=== PATIENT | female | born 1990 | race Caucasian/White ===

== ENCOUNTER 2016-12-24 20:31 | Emergency (ER) | payer MEDICAID ==
[~2016-12-24] VITALS: Ht 154.9 cm; Wt 60.5 kg
[~2016-12-24 20:31] MED LIST: PREN1TAB49
[2016-12-24 20:42] VITALS: Ht 154.9 cm; Wt 60.5 kg
[2016-12-24] MEDS ORDERED: ONDANSETRON 4 MG INJ IV STA (21:34)
[2016-12-24] MEDS ORDERED: morphine 4 MG/ML VIAL IV STA (21:34)
[2016-12-24 22:27] LABS: BASOPHILS % 0.4 % (0.0-2.0); EOSINOPHILS % 0.7 % (0.0-7.0); HEMATOCRIT 32.7 % (37.0-47.0); HEMOGLOBIN 10.9 g/dl (12.0-16.0); LYMPHOCYTES # 1.6 10^3/ul (0.8-2.9); LYMPHOCYTES % 28.7 % (15.0-51.0); MEAN CORPUSCULAR HEMOGLOBIN 26.4 pg (29.0-33.0); MEAN CORPUSCULAR HGB CONC 33.4 g/dl (32.0-37.0); MEAN CORPUSCULAR VOLUME 79.2 fl (82.0-101.0); MEAN PLATELET VOLUME 8.9 fl (7.4-10.4); MONOCYTE # 0.5 10^3/ul (0.3-0.9); MONOCYTES % 9.4 % (0.0-11.0); NEUTROPHIL # 3.4 10^3/ul (1.6-7.5); NEUTROPHILS % 60.8 % (39.0-77.0); PLATELET COUNT 130 10^3/UL (140-440); RED BLOOD COUNT 4.13 10^6/ul (4.20-5.40); UNCORRECTED WBC 5.5 10^3/ul (4.8-10.8); WHITE BLOOD COUNT 5.5 10^3/ul (4.8-10.8)
[2016-12-24 22:29] LABS: CONDITION 1; LH ANALYZER COMMENTS 1
[2016-12-24 22:32] LABS: POTASSIUM 3.6 mmol/L (3.5-5.1)
[2016-12-24 22:34] LABS: ALBUMIN/GLOBULIN RATIO 1.25; BILIRUBIN,INDIRECT 0.6 mg/dl (0-1.1); BILIRUBIN,TOTAL 0.6 mg/dl (0.2-1.3); CREATININE 0.5 mg/dl (0.44-1.00); TOTAL PROTEIN 7.2 g/dl (6.1-8.1)
[2016-12-24 22:35] LABS: CALCIUM 8.9 mg/dl (8.4-10.2)
[2016-12-24 23:12] LABS: URINE BLOOD (Dip) POC Negative (NEGATIVE)
[2016-12-24 23:27] LABS: ADD UMIC YES; URINE BILIRUBIN (Dip) NEGATIVE (NEGATIVE); URINE BLOOD (Dip) NEGATIVE (NEGATIVE); URINE GLUCOSE (Dip) NEGATIVE (NEGATIVE); URINE KETONES (Dip) NEGATIVE (NEGATIVE); URINE LEUKOCYTE ESTERASE (Dip) 1+ (NEGATIVE); URINE NITRITE (Dip) NEGATIVE (NEGATIVE); URINE TOTAL PROTEIN (Dip) TRACE (NEGATIVE); URINE UROBILINOGEN (Dip) 1.0 E.U./dL (0.1-1.0)
[2016-12-25 00:02] LABS: URINE COLOR YELLOW (YELLOW)
[2016-12-25 00:04] LABS: MUCUS,URINE MODERATE; URINE RBCS 0-2 /HPF (0)
[2016-12-25 00:05] LABS: SQUAMOUS EPITHELIAL CELL,UR MODERATE
--- NOTE | 2016-12-25 00:14 | RADRPT ---
PROCEDURE: CT Abdomen and Pelvis without contrast. CLINICAL INDICATION: Left lower quadrant abdominal pain. TECHNIQUE: CT scan of the abdomen without contrast was performed on a multi-slice CT scanner. Cor onal and sagittal reformatted images were obtained from the axial source images. The images were rev iewed on a high-resolution PACS workstation. RADIATION DOSE: CTDIvol: 7.1 mGyDLP: 346.0 mGy-cm COMPARISON: None. FINDINGS: Limited visualization of the inferior thorax is unremarkable. The liver is normal in size and densi ty without focal mass or intrahepatic biliary dilatation. The spleen, adrenal glands, gallbladder, extrahepatic common bile duct and pancreas are normal in appearance. The kidneys are normal in appe arance. There is a 2 mm stone in the lower pole right kidney. There is no periaortic, iliac or ingu inal lymphadenopathy. The aorta is normal in appearance. The colon is normal in appearance without evidence of asymmetric wall thickening, mass or dilatation . The small bowel is unremarkable. There is no mesenteric lymphadenopathy. The appendix is visual ized and normal in appearance (axial series image [id number]). The uterus adnexal structures unremarka ble. No definite ovarian cysts are seen. The bladder is normal in appearance. The lower thoracic and lumbar spines are unremarkable. No osteolytic or osteoblastic lesion is detected. The soft tiss ues are normal in appearance. IMPRESSION: 1. 2 mm stone in the lower pole of the right kidney without evidence of hydronephrosis. No ureteral stones are seen. 2. No mass, lymphadenopathy, or focal acute inflammatory process is identified. RPTAT: HGAS .Gabe Young MD, MD Date Time Electronically viewed and signed by .Gabe Young MD, MD on 12/25/2016 00:13 .S/
[2016-12-25] MEDS ORDERED: KETOROLAC 30 MG INJ IV STA (01:06)
--- NOTE | 2016-12-25 03:24 | RADRPT ---
PROCEDURE: Pelvic ultrasound. CLINICAL INDICATION: Pelvic pain. TECHNIQUE: Multiple sonographic images of the pelvis were obtained utilizing a transabdominal and endovaginal technique. The images were reviewed on a PACS workstation. COMPARISON: None. FINDINGS: The uterus is retroverted the and measures 8.4 x 3.3 x 6.3 cm. No abnormal uterine mass is identifie d. The endometrial echo complex is homogeneous and measures 11.6 mm. There is no evidence for free fluid. The right ovary has a normal echotexture and measures 4.9 x 3. 4 x 4.7 cm. The left ovary has a normal echotexture and measures 2.6 x 1.9 x 2.4 cm. There is norm al flow to both ovaries. There is a hypoechoic cyst within the right ovary measuring 2.1 x 2.6 x 2. 1 cm. No adnexal masses are identified. IMPRESSION: Right ovarian 2.6 cm cyst. Retroverted uterus. .Hoang Angulo MD, Date Time Electronically viewed and signed by .Hoang Angulo MD, MD on 12/25/2016 03:24 .T/
[2016-12-25] MEDS ORDERED: HYDR-906 PO (03:33)
[2016-12-25] MEDS ORDERED: IBUP-1542 PO (03:34)
[2016-12-25] MEDS ORDERED: TAMS-14 PO (03:34)
--- NOTE | 2016-12-25 03:52 | ERD ---
ER Documentation Chief Complaint Date/Time DATE: 12/25/16 TIME: 03:39 Chief Complaint left abd pain x 1 month, worse today HPI Patient is a 26-year-old female who presents to the emergency department with left-sided abdominal pain x 1 month. Patient states that her pain has become severely worse today. Patient states her current pain as a 10 out of 10 and is constant in nature. Patient describes the pain to be sharp. The pain is localized to the left lower quadrant and radiates to her left flank region. Patient denies pain with urination or hematuria. Patient reports chills however she denies fevers. Patient reports nausea but denies any vomiting. Patient denies any vaginal bleeding or vaginal discharge. Last BM was this morning, no diarrhea. Last Menstrual period 12/08/16. No sick contacts. No recent travel. No antibiotic use. ROS All systems reviewed and are negative except as per history of present illness. Medications Home Meds Active Scripts Tamsulosin Hcl* (Flomax*) 0.4 Mg Cap.er.24h, 0.4 MG PO QPM, #30 CAP Prov:RIGOBERTO SALEEM-C 12/25/16 Ibuprofen* (Motrin*) 600 Mg Tab, 600 MG PO Q6, #15 TAB Prov:RIGOBERTO SALEEM-C 12/25/16 Hydrocodone/Acetaminophen ([place] 5-325 Tablet) 1 Each Tablet, 1 TAB PO Q6H Y for PAIN, #10 TAB Prov:RIGOBERTO SALEEM-C 12/25/16 Reported Medications Vits W-Ca,Fe,Fa(<1MG) () 1 Tab Tablet 10/03/10 Allergies Allergies: Coded Allergies: No Known Allergy (Verified , 12/24/16) PMhx/Soc Medical and Surgical Hx: pt denies Medical Hx, pt denies Surgical Hx History of Surgery: Yes (C section) Anesthesia Reaction: No Hx Neurological Disorder: No Hx Respiratory Disorders: No Hx Cardiac Disorders: No Hx Psychiatric Problems: No Hx Miscellaneous Medical Probl: No Hx Alcohol Use: No Hx Substance Use: No Hx Tobacco Use: No Smoking Status: Never smoker FmHx Family History: No diabetes Physical Exam Vitals Vital Signs Date Time Temp Pulse Resp B/P Pulse Ox O2 Delivery O2 Flow Rate FiO2 12/25/16 04:00 97.9 82 17 96/56 96 Room Air 2/2/17 20:42 99.1 97 20 108/75 98 Physical Exam GENERAL: Well-developed, well-nourished female. Appears in uncomfortable and in pain. Crying. HEAD: Normocephalic, atraumatic. EYES: Pupils are equally reactive bilaterally. EOMs grossly intact. No conjunctival erythema. ENT: Moist mucous membranes. No uvula deviation. No kissing tonsils. NECK: Supple. No lymphadenopathy or thyromegaly. No meningismus. LUNG: Clear to auscultation bilaterally. No rhonchi, wheezing, rales or coarse breath sounds. HEART: Regular rate and rhythm. No murmurs, rubs or gallops. ABDOMEN: No scars, ecchymosis or rashes noted. Soft, nondistended. Tender to palpation in the left lower quadrant. Positive bowel sounds in all four quadrants. No rebound tenderness, no guarding. (-) McBurneys point tenderness. L sided CVA tenderness. BACK: No midline tenderness. EXTREMITIES: Equal pulses bilaterally. No peripheral clubbing, cyanosis or edema. No unilateral leg swelling. NEUROLOGIC: Alert and oriented. Moving all four extremities without any difficulty. Normal speech. Steady gait. SKIN: Normal color. Warm and dry. No rashes or lesions. Result Diagram: 12/24/16220412/24/162204 Results 24 hrs Laboratory Tests Test 12/24/16 22:05 12/24/16 23:13 12/24/16 23:14 Alanine Aminotransferase (ALT/SGPT) 23IU/L Albumin 4.0g/dl Albumin/Globulin Ratio 1.25 Alkaline Phosphatase 104IU/L Anion Gap 19 Aspartate Amino Transf (AST/SGOT) 17IU/L Basophils # 0.010^3/ul Basophils % 0.4% Blood Morphology Comment Blood Urea Nitrogen 16mg/dl Calcium Level 8.9mg/dl Carbon Dioxide Level 26mmol/L Chloride Level 103mmol/L Creatinine 0.50mg/dl Direct Bilirubin 0.00mg/dl Eosinophils # 0.010^3/ul Eosinophils % 0.7% Globulin 3.20g/dl Glucose Level 93mg/dl Hematocrit 32.7% Hemoglobin 10.9g/dl Indirect Bilirubin 0.6mg/dl Lipase 69U/L Lymphocytes # 1.610^3/ul Lymphocytes % 28.7% Mean Corpuscular Hemoglobin 26.4pg Mean Corpuscular Hemoglobin Concent 33.4g/dl Mean Corpuscular Volume 79.2fl Mean Platelet Volume 8.9fl Monocytes # 0.510^3/ul Monocytes % 9.4% Neutrophils # 3.410^3/ul Neutrophils % 60.8% Nucleated Red Blood Cells # 0.010^3/ul Nucleated Red Blood Cells % 0.0/100WBC Platelet Count 34738^3/UL Potassium Level 3.6mmol/L Red Blood Count 4.1310^6/ul Red Cell Distribution Width 13.0% Sodium Level 144mmol/L Total Bilirubin 0.6mg/dl Total Protein 7.2g/dl White Blood Count 5.510^3/ul Urine Bilirubin NEGATIVE Urine Clarity CLEAR Urine Color YELLOW Urine Glucose NEGATIVE% Urine Hemoglobin NEGATIVE Urine Ketones NEGATIVE Urine Leukocyte Esterase 1+ Urine Microscopic RBC 0-2/HPF Urine Microscopic WBC 5-10/HPF Urine Mucus MODERATE Urine Nitrite NEGATIVE Urine Specific [place] 1.025 Urine Squamous Epithelial Cells MODERATE Urine Total Protein TRACE Urine Urobilinogen 1.0 E.U./dL Urine pH 6.5 Bedside Urine Blood Negative Bedside Urine Glucose (UA) Negative Bedside Urine Ketones (LAB) Negative Bedside Urine Leukocyte Esterase (L 1+ Bedside Urine Nitrite (LAB) Negative Bedside Urine Protein (LAB) Trace Bedside Urine pH (LAB) 7.0 Current Medications Medications (Trade) Dose Ordered Sig/Jas Route PRN Reason Start Time Stop Time Status Last Admin Dose Admin Morphine Sulfate (morphine) 4 mg ONCE STAT IV 12/24/16 21:34 12/24/16 21:38 DC 12/24/16 22:13 Ondansetron HCl (Zofran Inj) 4 mg ONCE STAT IV 12/24/16 21:34 12/24/16 21:38 DC 12/24/16 22:13 Ketorolac Tromethamine (Toradol) 30 mg ONCE STAT IV 12/25/16 01:06 12/25/16 01:07 DC 12/25/16 01:22 Procedures/MDM ED COURSE: The patient was stable throughout ED course. I kept the patient and/or family informed of laboratory and diagnostic imaging results throughout the ED course. DIAGNOSTIC IMAGING: Read by radiologist. DIAGNOSTIC IMAGING REPORT Patient: FRANDY SCOTT : 1990 Age: 26 Sex: F [id number] DOS: 12/24/16 2134 Ordering MD: RIGOBERTO SALEEM PA-C Location: [facility] Room/Bed: PROCEDURE: CT Abdomen and Pelvis without contrast. CLINICAL INDICATION: Left lower quadrant abdominal pain. TECHNIQUE: CT scan of the abdomen without contrast was performed on a multi- slice CT scanner. Coronal and sagittal reformatted images were obtained from the axial source images. The images were reviewed on a high-resolution PACS workstation. RADIATION DOSE: CTDIvol: 7.1 mGy DLP: 346.0 mGy-cm COMPARISON: None. FINDINGS: Limited visualization of the inferior thorax is unremarkable. The liver is normal in size and density without focal mass or intrahepatic biliary dilatation. The spleen, adrenal glands, gallbladder, extrahepatic common bile duct and pancreas are normal in appearance. The kidneys are normal in appearance. There is a 2 mm stone in the lower pole right kidney. There is no periaortic, iliac or inguinal lymphadenopathy. The aorta is normal in appearance. The colon is normal in appearance without evidence of asymmetric wall thickening , mass or dilatation. The small bowel is unremarkable. There is no mesenteric lymphadenopathy. The appendix is visualized and normal in appearance (axial series image [id number]). The uterus adnexal structures unremarkable. No definite ovarian cysts are seen. The bladder is normal in appearance. The lower thoracic and lumbar spines are unremarkable. No osteolytic or osteoblastic lesion is detected. The soft tissues are normal in appearance. IMPRESSION: 1. 2 mm stone in the lower pole of the right kidney without evidence of hydronephrosis. No ureteral stones are seen. 2. No mass, lymphadenopathy, or focal acute inflammatory process is identified. RPTAT: HGAS .Gabe Young MD, MD Date Time Electronically viewed and signed by .Gabe Young MD, MD on 12/25/2016 00: 13 .S/ CC: RIGOBERTO SALEEM PA-C DIAGNOSTIC IMAGING REPORT Patient: FRANDY SCOTT : 1990 Age: 26 Sex: F [id number] [id number] DOS: 12/25/16 0128 Ordering MD: RIGOBERTO SALEEM PA-C Location: [facility] Room/Bed: PROCEDURE: Pelvic ultrasound. CLINICAL INDICATION: Pelvic pain. TECHNIQUE: Multiple sonographic images of the pelvis were obtained utilizing a transabdominal and endovaginal technique. The images were reviewed on a PACS workstation. COMPARISON: None. FINDINGS: The uterus is retroverted the and measures 8.4 x 3.3 x 6.3 cm. No abnormal uterine mass is identified. The endometrial echo complex is homogeneous and measures 11.6 mm. There is no evidence for free fluid. The right ovary has a normal echotexture and measures 4.9 x 3.4 x 4.7 cm. The left ovary has a normal echotexture and measures 2.6 x 1.9 x 2.4 cm. There is normal flow to both ovaries. There is a hypoechoic cyst within the right ovary measuring 2.1 x 2.6 x 2.1 cm. No adnexal masses are identified. IMPRESSION: Right ovarian 2.6 cm cyst. Retroverted uterus. .Hoang Angulo MD, Date Time Electronically viewed and signed by .Hoang Angulo MD, MD on 12/25/2016 03:24 .T/ CC: RIGOBERTO SALEEM PA-C MEDICATIONS GIVEN: Morphine, Zofran, IV fluids. Patient continued to have moderate pain. Patient was given Toradol IM. Patient tolerated medication well with no adverse reactions. Patient reported improvement significant in pain prior to discharge. MEDICAL DECISION MAKING: Patient is 26-year-old female who presents with abdominal pain 1 month. Patient states her pain became severely worse today. Vital signs were reviewed. Patient is afebrile. Abdominal exam revealed tenderness to palpation in the left lower quadrant with L sided CVA tenderness. CBC showed no evidence of systemic infection. Hemoglobin was 10.9, hematocrit 32.7. CMP showed no evidence of electrolyte abnormalities, severe acidosis, alkalosis, renal failure , or liver disease. Lipase showed no evidence of acute pancreatitis. UA showed positive 1+ leukocyte esterase, no nitrites, moderate squamous epithelial cells , moderate mucus. Urine sample most likely contaminated. Urine test was negative. CT abdomen and pelvis with no IV contrast was ordered. CT abdomen and pelvis showed 2 mm stone in the lower pole of the right kidney without evidence of hydronephrosis. No ureteral stones are seen. No mass, lymphadenopathy, or focal acute inflammatory process is identified. Given that the patient continued to have left lower quadrant pain, pelvic ultrasound was obtained. Pelvic ultrasound showed right ovarian 2.6 cm cyst. At this time, patient's presentation is most consistent with nephrolithiasis in the lower pole of the right kidney and right ovarian cyst. I have a much lower clinical concern for acute coronary syndrome, DKA, bowel perforation, bowel obstruction, pancreatitis , gastritis, cholecystitis, cholelithiasis, splenic rupture, diverticulitis, UTI , pyelonephritis, appendicitis, constipation, , ectopic , PID , ovarian torsion. PRESCRIPTIONS: [place], Ibuprofen, Flomax DISCHARGE: At this time, patient is stable for discharge and outpatient management. Patient advised to hydrate well. Patient will need to follow-up with an QA ANALYST for further management right ovarian cyst. Patient will need to follow-up with the urologist for further management of her kidney stone.I have instructed the patient to follow-up with his/her primary care physician in 1-2 days. I have instructed the patient to promptly return to the ER at any time for any new or worsening symptoms including increased pain, nausea, vomiting, diarrhea, fever, weakness or LOC. The patient and/or family expressed understanding of and agreement with this plan. All questions were answered. Home care instructions were provided. Departure Diagnosis: Primary Impression: Kidney stone Additional Impressions: Right ovarian cyst Anemia Anemia type: unspecified type Qualified Code: D64.9 - Anemia, unspecified type Condition: Stable Patient Instructions: What Are Ovarian Cysts?, Understanding Kidney Stones Referrals: BHARAT EVERETT MD,CARLOS JUDD MD [facility] YOU HAVE RECEIVED A MEDICAL SCREENING EXAM AND THE RESULTS INDICATE THAT YOU DO NOT HAVE A CONDITION THAT REQUIRES URGENT TREATMENT IN THE EMERGENCY DEPARTMENT. FURTHER EVALUATION AND TREATMENT OF YOUR CONDITION CAN WAIT UNTIL YOU ARE SEEN IN YOUR DOCTORS OFFICE WITHIN THE NEXT 1-2 DAYS. IT IS YOUR RESPONSIBILITY TO MAKE AN APPOINTMENT FOR FOLOW-UP CARE. IF YOU HAVE A PRIMARY DOCTOR --you should call your primary doctor and schedule an appointment IF YOU DO NOT HAVE A PRIMARY DOCTOR YOU CAN CALL OUR PHYSICIAN REFERRAL HOTLINE AT IF YOU CAN NOT AFFORD TO SEE A PHYSICIAN YOU CAN CHOSE FROM THE FOLLOWING [facility] [address] [facility]. [facility] [address] [facility]. [facility] [address] [facility] [address] [facility]. [facility] [address] [facility] [address] [facility]. [facility] YOU HAVE RECEIVED A MEDICAL SCREENING EXAM AND THE RESULTS INDICATE THAT YOU DO NOT HAVE A CONDITION THAT REQUIRES URGENT TREATMENT IN THE EMERGENCY DEPARTMENT. FURTHER EVALUATION AND TREATMENT OF YOUR CONDITION CAN WAIT UNTIL YOU ARE SEEN IN YOUR DOCTORS OFFICE WITHIN THE NEXT 1-2 DAYS. IT IS YOUR RESPONSIBILITY TO MAKE AN APPOINTMENT FOR FOLOW-UP CARE. IF YOU HAVE A PRIMARY DOCTOR --you should call your primary doctor and schedule and appointment IF YOU DO NOT HAVE A PRIMARY DOCTOR YOU CAN CALL OUR PHYSICIAN REFERRAL HOTLINE AT . IF YOU CAN NOT AFFORD TO SEE A PHYSICIAN YOU CAN CHOSE FROM THE FOLLOWING [facility]: [facility] [address] [place] [address] [facility] [address] [place] [address] [facility] [address] [place] [address] QA ANALYST [place] [address] [facility] [address] [place] [address] [address] [facility] [address] [place] [address] [address] [facility] [address] [facility] [address] [address], [facility] [address] [facility] [place] [address] [facility] [address] [place] [address] [address] [facility] [address] [address] [facility] [address] [address] [place], [place] [address] [facility] [address], [facility] [address] [address] [facility] [address] [place], [place] [id number] Additional Instructions: Call your primary care doctor TOMORROW for an appointment during the next 1-2 days.See the doctor sooner or return here if your condition worsens before your appointment time. Patient will need to follow up with OBGYN for ovarian cyst. Take ibuprofen for pain. Drink lots of fluids. Patient will need to follow-up with the urologist for kidney stone. RIGOBERTO SALEEM PA-C Dec 25, 2016 03:51
[2016-12-25 04:00] VITALS: BP 96/56; PULSE 82; RESP 17; TEMP 97.9
== END 2016-12-25 04:00 | disposition home or self-care (01) ==
LOC: FTE 20:31
DX: N20.0 Calculus of kidney (principal); D64.9 Anemia, unspecified; N83.201 Unspecified ovarian cyst, right side; R10.2 Pelvic and perineal pain; R11.0 Nausea
CPT/HCPCS: 74176; 76830; 76856; 80053; 81001; 83690; 85025; J1885; J2270; J2405; 36415; 81003; 96374; 96375